=== PATIENT | male | born 1970 | race Caucasian/White ===

== ENCOUNTER 2020-09-06 13:23 | Outpatient (CLI) | payer OTHER, SELFPAY ==
--- NOTE | 2020-09-06 13:44 | ECHO_ITS ---
Patient Info Name: Sumit Pack Age: 49 years : 1970 Gender: Male Ht: 64 in Wt: 320 lbs BSA: 2.65 m2 HR: 89 bpm BP: 171 / 104 mmHg Technical Quality: Fair Exam Date: 09/06/2020 1:59 PM Exam Location: [facility] Patient Status: Outpatient Admit Date: 09/06/2020 Staff Ordering Physician: Jyoti Castro Baker Paint: Albertina Arias RDCS Attending Provider: Jyoti Castro Referring Physician: Gloria GODDARD; Exam Type: CA echo doppler color flow Study Info Indications R60.9 - Edema, unspecified Complete two-dimensional, color flow and Doppler transthoracic echocardiogram is performed. Summary 1. Complete two-dimensional, color flow and Doppler transthoracic echocardiogram is performed. 2. Left ventricular chamber dimension is normal. 3. Left ventricular systolic function is normal, estimated at 65-70%. 4. There is mildly increased left ventricular wall thickness. 5. The left ventricular diastolic function is grade II diastolic dysfunction. 6. E/e' 15 is elevated. 7. There is trace mitral valve regurgitation. 8. No pulmonary hypertension, estimated pulmonary arterial systolic pressure is 11 mmHg. Left Ventricle E/e' 15 is elevated. Left ventricular chamber dimension is normal. Left ventricular systolic function is normal, estimated at 65-70%. There is mildly increased left ventricular wall thickness. The left ventricular diastolic function is grade II diastolic dysfunction. Right Ventricle Right ventricular chamber dimension is normal. Right ventricular systolic function is normal. Left Atria Left atrial chamber dimension is normal. Right Atria Right atrial chamber dimension is normal. Aortic Valve The aortic valve is trileaflet. There is no aortic valve stenosis. There is no aortic valve regurgitation. Pulmonic Valve There is no pulmonic regurgitation. Mitral Valve There is no mitral valve stenosis. There is trace mitral valve regurgitation. Tricuspid Valve There is no tricuspid valve regurgitation. No pulmonary hypertension, estimated pulmonary arterial systolic pressure is 11 mmHg. Pericardium/Pleural There is no pericardial effusion. Inferior Vena Cava Normal inferior vena cava with >50% collapse upon inspiration consistent with normal right atrial pressure, 5 mmHg. Aorta The aortic root size at the sinus of Valsalva is normal. Left Ventricular Outflow Tract Name Value Normal LVOT 2D LVOT Diameter 2.0 cm LVOT Doppler LVOT Peak Gradient 6 mmHg LVOT Mean Gradient 4 mmHg LVOT VTI 30 cm LVOT VTI/AV VTI Ratio 1.0 LVOT Stroke Volume 95 ml LVOT CO 7.3 l/min LVOT CI 2.8 l/min/m2 Pulmonic Valve Name Value Normal RVOT Doppler
== END 2020-09-06 13:24 | disposition home or self-care (01) ==
PROVIDERS: PCP Internal Medicine; Visit Provider Clinical Nurse Specialist
DX: R60.9 Edema, unspecified (principal)
CPT/HCPCS: 93306

== ENCOUNTER 2021-03-27 08:00 | Outpatient (RCR) | payer OTHER, SELFPAY ==
--- NOTE | 2021-03-03 15:30 | PTOPEVAL ---
PHYSICAL THERAPY EVALUATION AND PLAN OF CARE 03-03-21 Thank you for referring Sumit Pack to [facility] for the diagnosis of lymphedema. He is scheduled to be seen for therapy? 2 x/week for 5 weeks. Please review, sign, date and return this plan of care ZION. I agree with and certify that the following plan of care is medically necessary. Referring Physician Date Attending Provider: Kala Thompson NP PT Outpatient Evaluation Start: 03/03/21 14:06 Document 03/03/21 14:00 ESTELLA (Rec: 03/03/21 15:30 ESTELLA [id number]) Outpatient Past Medical History Past Medical History Source of Past Medical History Patient Neurological History Hx Neurological Disorders No Significant History Cardiovascular History Hx Cardiac Disorders No Significant History Respiratory History Hx Respiratory Disorders No Significant History Gastrointestinal History Hx Gastroesophageal Reflux Disease Yes Genitourinary History Hx Genitourinary Disorders No Significant History Musculoskeletal History Hx Orthopedic Surgery Yes: R and L knee arthroscopy; L ankle fracture w/ ORIF;B carpal tunnel&trigger Hematological History Hx Hematological Disorders No Significant History Endocrine History Hx Diabetes Yes: prediabetic- monitoring HEENT History Hx HEENT Disorders No Significant History Integumentary History Hx Other Skin Disorders Yes: sensative skin, tend to break out with medical tape Reproductive History Hx Reproductive Disorders No Significant History Other History Hx Other Medical Conditions Yes: obesity, increase 20# past year;has had covid vaccine Evaluation Information Problem Diagnosis localized lymphedema Onset Feb 2020 Prior Level of Function Activity Level (Last 3 Months) Occupation office working, now from home Activity of Daily Living Ability Independent Indoor/Home Mobility Independent Community Mobility Independent Stairs Ability Independent Functional Cognition (Planning, Shopping Independent , Taking Medications) Cooking Yes Cleaning Yes Laundry Yes Shopping Yes Driving Yes Comments Additional Prior Level of Function SOB with stairs; hobby of Comments golfing Pain Assessment Timing of Pain Assessment Timing of Pain Assessment Assessment Pain Scale Pain Scale Used Numeric (1 - 10) Self Report Pain Assessment Bilateral Leg(s) Reported Pain Level 4 Pain Description Aching,Dull,Heavy Pain Frequency Chronic Othe
--- NOTE | 2021-03-24 12:05 | PCPTNOTE ---
Pt called and cancelled today's appt.; car issues.
--- NOTE | 2021-05-02 11:53 | PCPTNOTE ---
PHYSICAL THERAPY DISCHARGE 05-02-21 Attending Provider: Kala Thompson NP Patient:Sumit Pack Date of :1970 Mr. Pack has received 6 PT sessions, from March 03 to March 27, for the diagnosis of B LE and scrotal lymphedema. At the last treatment session, the circumferential measurements of his legs, from the bottom of the foot to 56 cm, on the R 635.6 cm, decreased by 30.6 cm and L 613.8 cm, decreased by 25.9 cm compared to the initial evaluation. He has been educated on lymphedema care and management, has obtained and is independent with compression knee highs--Mediven plus 20-30 mmHg compression. The goals were achieved. Thank you for referring Sumit to [facility]. Please review, sign, date and return this discharge summary ZION. I have been updated about the patient's current status and I agree with discharge from the above service at this time. Referring Physician Date
== END 2021-05-02 15:08 | disposition home or self-care (01) ==
LOC: ANHPT 08:00
PROVIDERS: PCP Internal Medicine; Visit Provider Nurse Practitioner
DX: I89.0 Lymphedema, not elsewhere classified (principal); K21.9 Gastro-esophageal reflux disease without esophagitis; E55.9 Vitamin D deficiency, unspecified; E66.01 Morbid (severe) obesity due to excess calories
CPT/HCPCS: 97140; 97161

== ENCOUNTER 2021-05-12 09:59 | Outpatient (CLI) | payer OTHER, SELFPAY ==
--- NOTE | ~2021-05-12 | CT_ITS ---
EXAMINATION: CT abdomen pelvis w con EXAM DATE: 05/12/2021 13:10 INDICATION: N50.89 - Other specified disorders of the male genital. Bilateral groin swelling. TECHNIQUE: Spiral CT of the abdomen and pelvis was performed following intravenous injection of 100 m L Omnipaque 350. Axial, coronal and sagittal images of the abdomen and pelvis were reviewed. The do se-length product (DLP) for this examination was 1485.26 mGy-cm. The exposure was tailored according to patient size (auto mA exposure control), and iterative reconstruction (ASIR) was used as addition al dose reduction technique. There is no prior study for comparison. FINDINGS: There is hepatic steatosis without suspicious focal lesion identified. Splenic granulomata. Adrenal glands, pancreas are unremarkable. Gallbladder is unremarkable. No biliary obstruction. P ortal and splenic veins are patent. Kidneys enhance symmetrically. There is no hydronephrosis. Th e prostate is unremarkable. The bladder is unremarkable. There is no retroperitoneal or pelvic lymp hadenopathy. No sizable inguinal hernia. No abdominal wall hernia. Small amount of ascites. The appendix is normal. The stomach and small bowel are unremarkable. There is expected amount of c olonic stool. No free intraperitoneal gas. The heart is normal in size. There are no pericardial or pleural effusions. The lung bases are unremarkable. There are no osteoblastic or osteolytic les ions identified. IMPRESSION: 1. Hepatic steatosis. 2. Small amount of ascites. 3. No hernias. Reviewed, dictated and finalized at location A.
--- NOTE | ~2021-05-12 | US_ITS ---
EXAMINATION: US scrotum doppler DATE: 05/12/2021 10:42 INDICATION: Bilateral scrotal swelling TECHNIQUE: Testicular sonogram utilizing grayscale and Doppler COMPARISON: None. FINDINGS: There is diffuse soft tissue swelling of the scrotum. No scrotal gas is identified. The rig ht testis measures 2.8 x 1.7 x 2.2 cm. The left testis measures 2.7 x 2.0 x 2.6 cm. There is normal v ascular flow to both testes. The right epididymis is normal with normal vascular flow. The left epidi dymis is normal with normal vascular flow. There is no varicocele or hydrocele. IMPRESSION: 1. Diffuse soft tissue swelling of the scrotum, likely cellulitis. Recommend clinical correlation for any clinical signs of soft tissue gas (Sandy gangrene) which would reflect a surgical emergency. Reviewed, dictated and finalized at location B. IMPRESSION: 1. Diffuse soft tissue swelling of the scrotum, likely cellulitis. Recommend cl inical correlation for any clinical signs of soft tissue gas (Sandy gangrene ) which would reflect a surgical emergency.
== END 2021-05-12 10:00 | disposition home or self-care (01) ==
LOC: ANHIMG 10:03
PROVIDERS: PCP Internal Medicine; Visit Provider Internal Medicine
DX: N50.89 Other specified disorders of the male genital organs (principal); R74.8 Abnormal levels of other serum enzymes; K76.0 Fatty (change of) liver, not elsewhere classified
CPT/HCPCS: 74177; 76870; 93976; Q9967

== ENCOUNTER 2022-06-25 21:24 | Emergency (ER) | payer OTHER, SELFPAY ==
--- NOTE | ~2022-06-25 | XR_ITS ---
XR chest 2V DATE: 06/25/2022 22:29 INDICATION: Shortness of breath for 2 days. History of heart stents, last one placed 4 days ago. TECHNIQUE: AP and lateral views COMPARISON: 10/13/2013 PA and lateral chest FINDINGS: Heart size appears within normal range. No pulmonary infiltrate or consolidation, pleural effusion or pulmonary vascular congestion or pneumo thorax is detected. Dextroscoliosis of the thoracic spine. IMPRESSION: No active disease Reviewed, dictated and finalized at location A. UCTION LABORER IMPRESSION: No active disease
--- NOTE | ~2022-06-25 | CT_ITS ---
EXAMINATION: CTA LE RT DATE: 06/25/2022 22:12 INDICATION: Right groin hematoma. TECHNIQUE: Computed tomographic angiography (CTA) of the right lower extremity was performed with 150 mL Omnipaque-350 intravenous contrast. Automated exposure control and iterative reconstruction techn ique were employed. The dose-length product was 1391.20 mGy-cm. Maximum intensity projection 3D-recon structions of the arteries were created by the technologist on a separate workstation. COMPARISON: CT abdomen and pelvis 05/12/2021 FINDINGS: RIGHT LOWER EXTREMITY VASCULATURE: There is no significant stenosis of right common femoral artery, superficial femoral artery, poplitea l artery, tibioperoneal trunk, peroneal artery, anterior tibial artery, or posterior tibial artery. T here is extensive edema in the right lower extremity and scrotum. There is a 20 x 10 x 16 cm hematoma anterior to right common femoral artery. There is a small anterior branch anterior to right common f emoral artery with pseudoaneurysm. ADDITIONAL FINDINGS: Partially visualized is a stent from right common femoral vein to the inferior vena cava. There is no free intraperitoneal fluid. IMPRESSION: 1. Pseudoaneurysm of a small arterial branch anterior to right common femoral artery with large arianne mary. 2. No significant arterial occlusive disease. Reviewed, dictated and finalized at location A. UNITY EDUCATOR IMPRESSION: 1. Pseudoaneurysm of a small arterial branch anterior to right common femoral artery with large hematoma. 2. No significant arterial occlusive disease.
--- NOTE | ~2022-06-25 | CT_ITS ---
EXAMINATION: CTA abd aorta runoff DATE: 06/26/2022 14:18 INDICATION: Right thigh hematoma. TECHNIQUE: Computed tomographic angiography (CTA) of the abdominal, pelvis, and both lower extremitie s was performed with 150 mL Omnipaque-350 intravenous contrast. Automated exposure control and iterat ermias reconstruction technique were employed. The dose-length product was 1826.47 mGy-cm. Maximum inten sity projection 3D-reconstructions of the arteries were created by the technologist on a separate wor kstation. COMPARISON: CT abdomen and pelvis 05/12/2021, right lower extremity CTA 06/25/2022 FINDINGS: ABDOMINAL AORTA AND ITS BRANCHES: The abdominal aorta is normal in caliber. There is no significant stenosis of celiac axis, superior m esenteric artery, the renal arteries, or inferior mesenteric artery. PELVIC VASCULATURE: There is no significant stenosis of the common iliac arteries, external iliac arteries, or internal i liac arteries. RIGHT LOWER EXTREMITY VASCULATURE: There is no significant stenosis of right common femoral artery. A small branch of right common femor al artery courses anteriorly and distally. There is a pseudoaneurysm of this branch with associated h ematoma measuring 19.8 x 9.4 x 15.2 cm. There is extensive subcutaneous edema in right lower extremit y and the scrotum. There is no significant stenosis of right profunda femoral artery, superficial fem oral artery, popliteal artery,, tibioperoneal trunk, anterior tibial artery, posterior tibial artery, or popliteal artery. LEFT LOWER EXTREMITY VASCULATURE: There is no significant stenosis of common femoral artery, profunda femoral artery, superficial femor al artery, popliteal artery, tibioperoneal trunk, anterior tibial artery, posterior tibial artery, or peroneal artery. ADDITIONAL FINDINGS: The visualized portions of the lung bases are clear without pneumonia or pleural effusion. The heart size is normal. No pericardial effusion. The liver is normal. The gallbladder is distended. Calcifica tions in the spleen are consistent with old granulomatous disease. The pancreas, adrenal glands, and kidneys are normal. There are no dilated loops of bowel. The appendix is normal. There is a chronic c yst in left paracolic gutter measuring 7.0 x 4.6 x 8.9 cm, which may be a peritoneal inclusion cyst. There are no pathologically enlarged lymph nodes. There is a stent from right common femoral vein to the inferior vena cava. There is moderate thoracolumbar spondylosis. IMPRESSION: 1. Pseudoaneurysm of a small anterior branch of right common femoral artery with large hematoma. 2. Bilateral three-vessel runoff. Reviewed, dictated and finalized at location A. L SUPPLIES SALESPERSON IMPRESSION: 1. Pseudoaneurysm of a small anterior branch of right common femoral artery wi th large hematoma. 2. Bilateral three-vessel runoff.
[2022-06-25 21:28] VITALS: BP 142/80; PULSE 117; RESP 20; TEMP 36.6; O2SAT 100
--- NOTE | 2022-06-25 21:28 | ECG_ITS ---
Measurements Intervals [place] Rate: 114 P: 46 MI: 143 QRS: 35 QRSD: 84 T: 121 QT: 290 QTc: 399 Interpretive Statements SINUS TACHYCARDIA NONSPECIFIC ST & T-WAVE ABNORMALITY NO PREVIOUS ECG AVAILABLE FOR COMPARISON Electronically Signed On 06-26-2022 15:31:07 LAUN[employer] R[employer]TE DRIVER by Oumar Mauro M.D.
[2022-06-25 21:34] VITALS: PULSE 120
[2022-06-25 21:40] LABS: Basophils Percent Auto 0.2 % (0.2-1.2); Eosinophils Percent Auto 0.1 % (0-4.4); Immature Granulocyte Absolute 0.33 K/mm3 (0.00-0.031); Immature Granulocyte Percent A 2.3 % (0-0.5); Lymphocytes Absolute Auto 1.29 K/mm3 (0.9-3.2); Lymphocytes Percent Auto 8.8 % (18.3-44.2); Mean Corpuscular HGB Conc 31.6 g/dl (32-36); Mean Corpuscular Hemoglobin 26.6 pg (26-34); Mean Corpuscular Volume 84.4 fl (80-100); Mean Platelet Volume 9.5 fl (7.4-10.4); Monocytes Absolute Auto 1.4 K/mm3 (0.1-0.6); Monocytes Percent Auto 9.4 % (2.6-8.5); Neutrophils Absolute Auto 11.6 K/mm3 (1.3-6.7); Neutrophils Percent Auto 79.2 % (45.5-73.1); Platelet Count Result 321 k/mm3 (150-375); Red Blood Count 2.44 M/mm3 (4.6-6.20); Red Cell Distribution Width 15.4 % (11.5-14.5); White Blood Count 14.7 K/mm3 (4.5-10.0)
[2022-06-25 21:43] LABS: Hemoglobin 6.5 g/dL (14.0-18.0)
[2022-06-25 21:44] LABS: Hematocrit 20.6 % (42.0-52.0)
[2022-06-25 21:51] LABS: Alanine Aminotransferase 20 U/L (6-50); Albumin Level 3.5 g/dL (3.5-5.1); Alkaline Phosphatase 56 U/L (38-126); Anion Gap 10 mmol/L (8-16); Aspartate Amino Transferase 34 U/L (17-59); Blood Urea Nitrogen 24 mg/dL (9-20); Calcium 8.6 mg/dL (8.4-10.2); Carbon Dioxide 22 mmol/L (22-30); Chloride 106 mmol/L (98-107); Estimated Glomerular Filt Rate > 60; Glucose 155 mg/dL (65-110); Potassium 4.1 mmol/L (3.4-5.0); Sodium 138 mmol/L (137-145)
[2022-06-25 22:55] VITALS: O2SAT 98
--- NOTE | 2022-06-25 22:55 | ED.SOB ---
HPI - SOB/Dyspnea General Chief Complaint: Shortness of Breath/Dyspnea Stated Complaint: sob Time Seen by Provider: 06/25/22 21:34 History of Present Illness HPI Narrative: Patient is a 51-year-old male who presents ER with right thigh pain and shortness of breath. Night pain increasing over the last 3 days since having a interventional radiology procedure at [facility] to open up his right iliac veins. There is new stent within the vein. He is currently anticoagulated on Lovenox. Reports pain is increasing and worse with standing. He has bruising and breakdown of skin in the right thigh where he had the procedure. Additionally he been having shortness of breath with exertion and such with diaphoresis fatigue. No chest pain or chest pressure pain with deep breath. Related Data Home Medications Medication Instructions Recorded Confirmed ibuprofen 200 mg tablet (Advil) 200 mg PO DAILY 07/03/19 05/09/22 omeprazole magnesium 20 mg 20 mg PO DAILY 07/03/19 05/09/22 tablet,delayed release (Prilosec OTC) rivaroxaban 20 mg tablet (Xarelto) 20 mg PO DAILY 05/09/22 05/09/22 Allergies Allergy/AdvReac Type Severity Reaction Status Date / Time Cephalosporins Allergy Severe HIVES Verified 05/09/22 09:57 cephalexin Allergy Unknown Hives Verified 05/09/22 09:57 SURGICAL TAPE AdvReac Mild PT REPORTS Uncoded 05/09/22 09:57 SKIN TURNS PINK WITH SOME TAPE. Review of Systems Review of Systems: All systems reviewed & are unremarkable except as noted in HPI and below Constitutional: Constitutional: Denies chills, Reports fatigue and Denies fever(s) ENT: Denies nasal congestion and Denies sore throat Cardiovascular: Cardiovascular: Denies chest pain, Denies rapid heart rate and Denies radiating jaw, neck or arm pain Respiratory: Respiratory: Denies cough, Reports dyspnea and Denies wheezing Comments: Dyspnea on exertion Gastrointestinal: Gastrointestinal: Denies abdominal pain, Denies nausea and Denies vomiting Musculoskeletal: Musculoskeletal: Denies arthralgias and Denies joint swelling Comments: Right thigh pain and swelling Integumentary/Breasts: Skin/Breast: Denies pruritus and Denies erythema Comments: Contusion right thigh and neck. 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 Surgical History Surgical History (Reviewed 05/11/21 @ 07:33 by Yaimleth Akbar [facility]) H/O carpal tunnel repair Hx of LASIK Left and right eyes S/P medial meniscal repair Left and right knees Status post trigger finger release Left and right hands Family History Family History (Reviewed 05/11/21 @ 07:33 by Yamileth Akbar [facility]) Father Hypertension Mother Family history of diabetes mellitus in first degree relative Grandparent Diabetes mellitus Hypertension Social History Social History (Reviewed 05/11/21 @ 07:33 by Yamileth Akbar [facility]) Smoking status: Never smoker Alcohol intake: current Alcohol use details: Pt drinks socially. Exam Narrative: GENERAL: Well-appearing, morbidly obese, and in no acute distress. HEAD: Normocephalic, atraumatic. EYES: PERRL and EOMI. pale conjunctiva ENT: Mucous membranes moist. CHEST: Clear to auscultation. No respiratory distress. HEART: Tachycardic and regular. Normal peripheral pulses. ABDOMEN: Soft, nontender, nondistended. EXTREMITIES: Normal range of motion. Lymphedema bilateral lower extremity. Proximal right thigh indurated and contused. Superficial skin breakdown approximately 7 centimeters in diameter. SKIN: Warm, dry, no rash. See above. NEURO: Alert and oriented x3. PSYCH: Normal mood and affect. Course Course Emergency Course: Patient informed of results. Discussed case with interv
[2022-06-25 23:19] LABS: INR 1.1; Prothrombin Time 13.5 Seconds (11.1-14.7)
[2022-06-25 23:20] LABS: Partial Thromboplastin Time 36.9 SECONDS (22.3-36.8)
[2022-06-25 23:31] VITALS: PULSE 110; RESP 18; O2SAT 98
[2022-06-25] MEDS: MORPHINE SULFATE (*CRX) 4 MG/ML INJ IV PUSH (23:35)
[2022-06-25] MEDS: ONDANSETRON INJ 4 MG/2 ML VIAL IV PUSH (23:40)
[2022-06-26] VITALS (13 sets, daily range): BP systolic 94–152; BP diastolic 51–111; PULSE 62–118; RESP 16–22; TEMP 36.4–37; O2SAT 96–100
--- NOTE | 2022-06-26 01:05 | PM.IMHP ---
H&P: HPI History of Present Illness Date/Time: 06/26/22 01:05 Chief Complaint: right growing pain Narrative: This is a 51-year-old male with past medical history significant for morbid obesity, peripheral vascular disease, hypertension, GERD, patient is status post right femoral stent placement last Saturday at outside facility however he comes today due to right growing swelling pain tenderness scrotal swelling, patient found to have hematoma of the right growing and hemoglobin of 6 patient also tested positive for COVID 19 has been having diaphoresis, shortness of breath with minimal exertion. patient is awaiting bed at tertiary facility where he received his stent. Patient is being placed in observation at our facility awaiting bed. Patient is receiving blood transfusion in emergency room. Review of Systems Review of Systems: Right growing pain, swelling, scrotal swelling, shortness of breath is minimal exertion. Constitutional: Constitutional: Denies chills, Reports fatigue, Denies fever(s), Reports lethargy, Reports malaise, Reports night sweats, Denies poor appetite and Reports weakness Eyes: Eyes: Denies change in vision ENT: Denies dysphagia, Denies vertigo, Denies dizziness and Denies odynophagia Cardiovascular: Cardiovascular: Denies chest pain, Reports leg edema, Denies radiating jaw, neck or arm pain and Reports dyspnea Respiratory: Respiratory: Denies chest congestion, Denies cough and Reports dyspnea Gastrointestinal: Gastrointestinal: Denies abdominal pain, Denies dyspepsia, Denies heartburn, Denies diarrhea, Denies nausea and Denies vomiting Genitourinary: Genitourinary: Reports dysuria and Reports scrotal swelling Musculoskeletal: Musculoskeletal: Reports other ( Groing swelling) Integumentary/Breasts: Skin/Breast: Denies rash Comments: right groin hematoma Neurologic: Denies vertigo, Denies dizziness, Denies focal weakness and Denies radicular pain Psychiatric: Psychiatric: Reports no additional psychiatric complaints and Reports as per HPI Endocrine: Endocrine: Denies cold intolerance, Denies flushing, Denies heat intolerance, Denies polyphagia, Denies polydipsia and Denies palpitations Hematologic/Lymphatic: Hematologic/Lymphatic: Reports no additional hematologic/lymphatic complaints and Reports as per HPI Allergic/Immunologic: Allergic/Immunologic: Reports no additional allergic/immunologic complaints and Reports as per HPI [facility] Past Medical History Medical History (Updated 06/26/22 @ 04:35 by Kristi Mckoy MD) Broken ankle Essential hypertension GERD (gastroesophageal reflux disease) Scrotal edema 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 Surgical History Surgical History H/O carpal tunnel repair Hx of LASIK Left and right eyes S/P medial meniscal repair Left and right knees Status post trigger finger release Left and right hands Family History Family History Father Hypertension Mother Family history of diabetes mellitus in first degree relative Grandparent Diabetes mellitus Hypertension Social History Social History Smoking status: Never smoker Alcohol intake: current Alcohol use details: Pt drinks socially. Meds Home Medications and Allergies Home Medications Medication Instructions Recorded Confirmed Type ibuprofen 200 mg tablet (Advil) 200 mg PO DAILY 07/03/19 05/09/22 History omeprazole magnesium 20 mg 20 mg PO DAILY 07/03/19 05/09/22 History tablet,delayed release (Prilosec OTC) lisinopril 5 mg tablet 5 mg PO DAILY #90 tabs 05/09/22 05/09/22 Rx rivaroxaban 20 mg tablet (Xarelto) 20 mg PO DAILY 05/09/22 05/09/22 History cholecalciferol (vitamin D3) 1,250 1,250 mcg PO WEEKLY #8 tabs 05/28/22 Rx mcg (50,000 unit) tablet Allergies Allergy/AdvRe
--- NOTE | 2022-06-26 01:20 | PC.NURSE ---
Patient stating, You will have to help me hold my penis, You would be very helpful if you held my penis the right way I am sure it will help me. I would really like you to help me I am sure you have the hands to help me
[2022-06-26 02:08] LABS: Influenza A QL RT-PCR Negative (Negative); Influenza B QL RT-PCR Negative (Negative); SARS-CoV-2 RNA PCR Positive
[2022-06-26] MEDS: ENOXAPARIN 100 MG/ML SYRINGE 150 MG SUB-Q (02:30)
[2022-06-26] MEDS: HYDROcodone/acetaminophen (*CRX) 5-325 MG TABLET 1 TAB PO (04:16)
[2022-06-26] MEDS: ONDANSETRON INJ 4 MG/2 ML VIAL IV PUSH ×2 (08:42→13:52)
[2022-06-26] MEDS: MORPHINE SULFATE (*CRX) 4 MG/ML INJ IV PUSH ×2 (08:44→13:52)
[2022-06-26 13:08] LABS: Hematocrit 23.1 % (42.0-52.0); Hemoglobin 7.5 g/dL (14.0-18.0)
== END 2022-06-26 14:34 | disposition short-term general hospital (02) ==
LOC: ANHED 06-26 01:07 → ANHIMU 06-26 07:48
PROVIDERS: Emergency Medicine; Emergency Provider Emergency Medicine; PCP Internal Medicine
DX: I97.630 Postprocedural hematoma of a circulatory system organ or structure following a cardiac catheterization (principal); T81.718A Complication of other artery following a procedure, not elsewhere classified, initial encounter; I72.4 Aneurysm of artery of lower extremity; U07.1 COVID-19; N50.89 Other specified disorders of the male genital organs; D62 Acute posthemorrhagic anemia; I10 Essential (primary) hypertension; E66.01 Morbid (severe) obesity due to excess calories; K21.9 Gastro-esophageal reflux disease without esophagitis; Z95.5 Presence of coronary angioplasty implant and graft; I73.9 Peripheral vascular disease, unspecified; Y83.2 Surgical operation with anastomosis, bypass or graft as the cause of abnormal reaction of the patient, or of later complication, without mention of misadventure at the time of the procedure; R00.0 Tachycardia, unspecified; R94.31 Abnormal electrocardiogram [ECG] [EKG]
CPT/HCPCS: 36415; 36430; 71046; 73706; 75635; 80053; 85014; 85018; 85025; 85610; 85730; 86850; 86900; 86901; 86923; 87636; 93005; 96372; 96374; 96375; 99285; A9270; J1650; J2270; J2405; P9016; Q9967